=== PATIENT | female | born 1970 | race Caucasian/White ===

== ENCOUNTER 2021-08-10 06:55 | Day surgery (SDC) | payer OTHER ==
[2021-08-10] MEDS ORDERED: DIPRIVAN 200 MG/20 ML IV ONE (08:22)
== END 2021-08-10 07:10 | disposition home or self-care (01) ==
LOC: SDC-PAIN 06:55
PROVIDERS: ATTEND Psychiatry & Neurology Pain Medicine
DX: R73.9 Hyperglycemia, unspecified (principal)
CPT/HCPCS: 82947; J2704

== ENCOUNTER 2021-08-31 07:02 | Day surgery (SDC) | payer OTHER ==
[2021-08-31] MEDS ORDERED: Depo-Medrol 40 MG/ML IM ONE (07:03)
[2021-08-31] MEDS ORDERED: BUPIVACAINE 0.5% VIAL IJ ONE (07:03)
[2021-08-31] MEDS ORDERED: DIPRIVAN 200 MG/20 ML IV ONE (08:55)
--- NOTE | 2021-08-31 10:35 | XRAY ---
Indication: Left hip injection. Intraoperative fluoroscopy provided for 10 seconds. Single digital spot image obtained prone submitted for interpretation demonstrates needle tip projecting lateral to the left femur neck. Small amount of contrast injected for needle tip placement. Correlate with intraoperative findings/report.
--- NOTE | 2021-08-31 10:35 | XRAY ---
Indication: Left SI joint injection. Intraoperative fluoroscopy provided for 9 seconds. 2 digital spot image submitted for interpretation demonstrates posterior needle tip projecting over the expected inferior left SI joint. Correlate with intraoperative findings/report.
[2021-08-31] MEDS ORDERED: Lactated Ringers 1,000 ML IV ONE (10:38)
--- NOTE | 2021-08-31 11:00 | XRAY ---
9 seconds fluoroscopy time in surgery for injection of the left SI joint.
--- NOTE | 2021-08-31 11:00 | XRAY ---
10 seconds fluoroscopy time in surgery for intra-articular injection of the left hip.
== END 2021-08-31 09:25 | disposition home or self-care (01) ==
LOC: SDC-PAIN 07:02
PROVIDERS: ATTEND Psychiatry & Neurology Pain Medicine
DX: M46.1 Sacroiliitis, not elsewhere classified (principal); M16.12 Unilateral primary osteoarthritis, left hip; I10 Essential (primary) hypertension; E11.9 Type 2 diabetes mellitus without complications; Z79.899 Other long term (current) drug therapy
CPT/HCPCS: 20610; 27096; 72020; 73501; 77002; 82947; G0260; J1030; J2704; Q9966

== ENCOUNTER 2021-10-26 06:53 | Day surgery (SDC) | payer OTHER ==
[2021-10-26] MEDS ORDERED: BUPIVACAINE 0.5% VIAL IJ ONE (06:54)
[2021-10-26] MEDS ORDERED: Depo-Medrol 40 MG/ML IM ONE (06:54)
[2021-10-26] MEDS ORDERED: DIPRIVAN 200 MG/20 ML IV ONE (08:34)
[2021-10-26] MEDS ORDERED: Lactated Ringers 1,000 ML IV ONE (08:55)
--- NOTE | 2021-10-26 10:14 | XRAY ---
Indication: Right shoulder and subacromial injections. Intraoperative fluoroscopy provided for 14 seconds. Single digital spot image submitted for interpretation demonstrates needle tip projecting right shoulder subacromial with contrast injected for needle tip placement. Additional contrast in the glenohumeral joint. Correlate with intraoperative findings/report.
--- NOTE | 2021-10-26 10:24 | XRAY ---
14 seconds fluoroscopy time in surgery for injections of the intra-articular and subachromial joint spaces of the right shoulder.
== END 2021-10-26 09:00 | disposition home or self-care (01) ==
LOC: SDC-PAIN 06:53
PROVIDERS: ATTEND Psychiatry & Neurology Pain Medicine
DX: M19.011 Primary osteoarthritis, right shoulder (principal); M75.51 Bursitis of right shoulder; E11.9 Type 2 diabetes mellitus without complications; Z79.899 Other long term (current) drug therapy
CPT/HCPCS: 20610; 73030; 77002; 82947; J1030; J2704; Q9966

== ENCOUNTER 2022-07-26 14:42 | Day surgery (SDC) | payer OTHER ==
[2022-07-26] MEDS ORDERED: Xylocaine 1% Vial 30 ML PF IJ ONE (14:43)
[2022-07-26] MEDS ORDERED: Depo-Medrol 40 MG/ML IM ONE (14:43)
[2022-07-26] MEDS ORDERED: BUPIVACAINE 0.5% VIAL IJ ONE (14:43)
--- NOTE | 2022-07-26 19:56 | XRAY ---
Indication: Right shoulder and subacromial bursa injection. Intraoperative fluoroscopy provided for 25 seconds. 2 digital spot image submitted for interpretation demonstrates needle tip projecting over the right glenohumeral joint superiorly. Second needle tip subacromial with small amount of contrast injected for needle tip placement. Correlate with intraoperative findings/report.
--- NOTE | 2022-07-27 19:54 | XRAY ---
25 seconds of fluoroscopy was used in surgery for an intra-articular shoulder and right subacromial bursa injection.
== END 2022-07-26 18:10 | disposition home or self-care (01) ==
LOC: SDC-PAIN 14:42
PROVIDERS: ATTEND Psychiatry & Neurology Pain Medicine
DX: M19.011 Primary osteoarthritis, right shoulder (principal); M75.51 Bursitis of right shoulder; E11.9 Type 2 diabetes mellitus without complications
CPT/HCPCS: 20610; 73030; 77002; 82947; J1030; J2001; Q9966